=== PATIENT | female | born 1960 | race African-American/Black ===

== ENCOUNTER 2018-07-12 12:31 | Inpatient (IN) | END 2018-07-13 13:02 | disposition home or self-care (01) | DRG 192 ==

== ENCOUNTER 2018-08-28 16:39 | Emergency (ER) | END 2018-08-28 18:39 | disposition home or self-care (01) ==

== ENCOUNTER 2018-08-30 09:44 | Emergency (ER) | END 2018-08-30 13:20 | disposition home or self-care (01) ==

== ENCOUNTER 2018-09-03 15:40 | Emergency (ER) | END 2018-09-03 18:11 | disposition home or self-care (01) ==